=== PATIENT | female | born 1950 | race Caucasian/White ===

== ENCOUNTER 2021-01-09 13:45 | Outpatient (CLI) | payer BC, MEDICARE | END 2021-01-09 13:46 | disposition home or self-care (01) | LOC: CSHCP 13:45 | PROVIDERS: ATTEND Internal Medicine | DX: I65.23 Occlusion and stenosis of bilateral carotid arteries (principal) | CPT/HCPCS: 93880 ==

== ENCOUNTER 2022-04-29 14:50 | Outpatient (CLI) | payer MEDICARE, BC | END 2022-04-29 14:51 | disposition home or self-care (01) | LOC: CSHRAD 14:50 | PROVIDERS: ATTEND Internal Medicine | DX: M53.3 Sacrococcygeal disorders, not elsewhere classified (principal); M46.1 Sacroiliitis, not elsewhere classified | CPT/HCPCS: 72220 ==

== ENCOUNTER 2024-03-10 13:30 | Outpatient (CLI) | payer MEDICARE, BC | END 2024-03-10 13:31 | disposition home or self-care (01) | LOC: CSHULT 13:30 | PROVIDERS: ATTEND Internal Medicine | DX: R06.09 Other forms of dyspnea (principal); R93.1 Abnormal findings on diagnostic imaging of heart and coronary circulation | CPT/HCPCS: 93306 ==